=== PATIENT | female | born 1960 | race Caucasian/White ===

== ENCOUNTER → 2020-04-26 11:21 | Outpatient (CLI) | payer OTHER, SELFPAY ==
--- NOTE | ~2020-04-26 | MM_ITS ---
EXAMINATION: MM screening danna BI w smita HISTORY: Screening mammogram, family history of breast cancer in her mother and sister. TECHNIQUE: Craniocaudal and mediolateral oblique 3-D tomosynthesis images were obtained and synthetic 2-D images were generated. CAD analysis was submitted and interpreted. COMPARISON: 01/07/2019, 10/10/2017, 04/04/2016 BREAST PARENCHYMAL COMPOSITION: The breasts are almost entirely fatty. FINDINGS: There is no evidence of suspicious mass, calcification, or architectural distortion to sugg est malignancy in either breast. There has been no suspicious interval change. IMPRESSION: 1. No mammographic evidence of malignancy. 2. Recommend routine screening mammography in one year. BI-RADS Category 1: Negative Reviewed, dictated and finalized at location A. O SPECIALIST
== END ==
PROVIDERS: PCP Registered Nurse; Visit Provider Obstetrics & Gynecology
DX: Z12.31 Encounter for screening mammogram for malignant neoplasm of breast (principal)
CPT/HCPCS: 77063; 77067

== ENCOUNTER 2021-10-28 21:56 | Observation (INO) | payer OTHER, SELFPAY ==
--- NOTE | ~2021-10-28 | NM_ITS ---
EXAMINATION: NM han stress w perfusion DATE: 10/29/2021 10:29 CDT INDICATION: Chest pain TECHNIQUE: Rest images were obtained following intravenous administration of 10.9 mCi Tc99m tetrofosm in (Myoview). The patient was infused intravenously with Lexiscan (regadenoson). Then, 33.5 mCi Tc99m tetrofosmin (Myoview) was administered intravenously, and stress images were obtained. Data was herlinda nstructed into short axis and horizontal and vertical long axis SPECT images. Gated SPECT images were also obtained. COMPARISON: None. FINDINGS: There is no definite reversible or fixed perfusion abnormality to suggest ischemia or infar ction. There is no segmental wall motion abnormality. Left ventricular ejection fraction measures 7 3%. IMPRESSION: 1. No definite ischemia or infarct. 2. Normal left ventricular ejection fraction measuring 73%. Reviewed, dictated and finalized at location A.
--- NOTE | ~2021-10-28 | XR_ITS ---
EXAMINATION: XR chest 2V DATE: 10/28/2021 22:15 INDICATION: Chest pain. TECHNIQUE: Frontal and lateral views of the chest were obtained. COMPARISON: Chest 2 views 06/11/2019, chest CT 05/20/2017 FINDINGS: The chest demonstrates clear lungs without pneumonia, pleural effusion, or pneumothorax. Th e heart size is normal. IMPRESSION: 1. No acute cardiopulmonary disease. Reviewed, dictated and finalized at location A.
--- NOTE | 2021-10-28 22:00 | ECG_ITS ---
Measurements Intervals Garrett Rate: 82 P: 58 NE: 186 QRS: 47 QRSD: 88 T: 66 QT: 358 QTc: 421 Interpretive Statements SINUS RHYTHM BASELINE ARTIFACT- I, II, III, AVR, AVL, AVF NORMAL ECG Electronically Signed On 10-29-2021 5:43:14 CDT by Fabio Stover D.O.
[2021-10-28 22:03] VITALS: BP 152/84; PULSE 84; RESP 17; TEMP 36.8; O2SAT 99
--- NOTE | 2021-10-28 22:10 | ED.CHESTPAIN ---
HPI - Chest Pain General Chief Complaint: Chest Pain Stated Complaint: chest pain Time Seen by Provider: 10/28/21 22:04 Source: patient History of Present Illness HPI narrative: Patient presents with chest pain. Reports your symptoms started around 7:00 this evening describes a pressure sensation on the left side of her chest radiating to her left arm she took nitro which alleviated her symptoms she talk to her daughter who is a nurse and was encouraged to go to the ER for evaluation. For some association with shortness of breath. When she gets up and walks around physical activity does make her chest pain worse. She denies any lightheadedness or dizziness denies any nausea or diaphoresis. She does report a history of COPD and smoking denies diabetes hypertension elevated cholesterol. She denies any significant family history of cardiac disease denies recent hospitalizations or surgeries history of blood clots. Related Data Home Medications Medication Instructions Recorded Confirmed albuterol sulfate [Ventolin HFA] 2 puff INHALATION Q6H PRN 06/11/19 10/29/21 sertraline 100 mg PO DAILY 06/11/19 10/29/21 Allergies Allergy/AdvReac Type Severity Reaction Status Date / Time Sulfa (Sulfonamide Allergy Unknown Rash Verified 10/28/21 22:15 Antibiotics) Review of Systems Review of Systems: CONSTITUTIONAL: Denies fever, chills, or sweats. EYES: Denies visual changes, redness, or discharge. ENT: Denies rhinorrhea, congestion, sore throat, or otalgia. CARDIOVASCULAR: Denies palpitations, or edema. RESPIRATORY: Reports shortness of breath GASTROINTESTINAL: Denies abdominal pain, nausea, vomiting, or diarrhea. GENITOURINARY: Denies dysuria or hematuria. SKIN: Denies rash or itching. MUSCULOSKELETAL: Denies back pain, joint pain, or myalgia. NEUROLOGIC: Denies headache, numbness, dizziness, or weakness. PSYCHIATRIC: Denies anxiety or depression. All systems reviewed & are unremarkable except as noted in HPI and below [facility] Family History Family History (Updated 10/29/21 @ 01:50 by Susan Goetz RN) Grandparent Diabetes mellitus Carcinoma of colon Father Family history of cardiovascular disease Acute myocardial infarction, Onset Age: 73 Hypertension Mother Family history of dementia, Onset Age: 87 Sibling Lung cancer, Onset Age: 62 Social History Social History Smoking status: Current every day smoker Alcohol intake: never Exam Narrative: GENERAL: Well-appearing, well-nourished, and in no acute distress. HEAD: Normocephalic, atraumatic. EYES: PERRLA and EOMI. ENT: Nares clear, no rhinorrhea or epistaxis. Mucous membranes moist. NECK: Supple. No masses. No JVD CHEST: Clear to auscultation. No respiratory distress. No wheezes rales or rhonchi HEART: Regular rate and rhythm. No murmur heard. Normal peripheral pulses. ABDOMEN: Soft, nontender, nondistended, normal active bowel sounds. EXTREMITIES: Normal range of motion. No edema. SKIN: Warm, dry, no rash. NEURO: No focal deficits. Alert and oriented x3. PSYCH: Normal mood and affect. Course Reevaluation(s) Reevaluation #1: Patient resting comfortably continues to have pain. Given patient's smoking obesity and exertional component to pain patient benefit from expedited evaluation. Patient is admitted to Dr. Stover further evaluation. Date: 10/29/21 Time: 00:21 Vital Signs Vital signs: Vital Signs Temperature 36.8 C 10/28/21 22:03 Pulse Rate 84 10/28/21 22:03 Respiratory Rate 17 10/28/21 22:03 Blood Pressure 152/84 H 10/28/21 22:03 Pulse Oximetry 99 10/28/21 22:03 Temperature 36.3 C L 10/29/21 01:43 Pulse Rate 81 10/29/21 01:43 Respiratory Rate 18 10/29/21 01:43 Blood Pressure 128/73 10/29/21 01:43 Pulse Oximetry 97 10/29/21 01:43 MDM - Chest Pain MDM Narrative Medical decision making narrative: Patient
[2021-10-28] MEDS: ASPIRIN 81 MG CHEWABLE TABLET 324 MG PO (22:11)
--- NOTE | 2021-10-28 22:12 | PC.NURSE ---
Pt to XR via stretcher at this time.
[2021-10-28 22:16] LABS: Basophils Absolute Auto 0.1 K/mm3 (0.0-0.1); Basophils Percent Auto 0.9 % (0.2-1.2); Eosinophils Absolute Auto 0.1 K/mm3 (0-0.3); Eosinophils Percent Auto 1.7 % (0-4.4); Hematocrit 39.2 % (37.0-47.0); Hemoglobin 12.9 g/dL (12.0-15.0); Immature Granulocyte Absolute 0.01 K/mm3 (0.00-0.031); Immature Granulocyte Percent A 0.1 % (0-0.5); Lymphocytes Percent Auto 32.2 % (18.3-44.2); Mean Corpuscular HGB Conc 32.9 g/dl (32-36); Mean Corpuscular Hemoglobin 29.4 pg (26-34); Mean Corpuscular Volume 89.3 fl (80-100); Monocytes Absolute Auto 0.6 K/mm3 (0.1-0.6); Monocytes Percent Auto 7.3 % (2.6-8.5); Neutrophils Absolute Auto 4.7 K/mm3 (1.3-6.7); Neutrophils Percent Auto 57.8 % (45.5-73.1); Platelet Count Result 308 k/mm3 (150-375); Red Blood Count 4.39 M/mm3 (4.2-5.4); Red Cell Distribution Width 13.8 % (11.5-14.5); White Blood Count 8.1 K/mm3 (4.5-10.0)
[2021-10-28 22:26] LABS: INR 1.1; Partial Thromboplastin Time 31.1 SECONDS (22.3-36.8); Prothrombin Time 13.3 Seconds (11.1-14.7)
[2021-10-28 22:27] LABS: Alanine Aminotransferase 23 U/L (6-35); Albumin Level 4.3 g/dL (3.5-5.1); Alkaline Phosphatase 68 U/L (38-126); Anion Gap 9 mmol/L (8-16); Aspartate Amino Transferase 33 U/L (14-36); Bilirubin,Total 0.2 mg/dL (0.2-1.3); Blood Urea Nitrogen 22 mg/dL (7-17); Calcium 9.2 mg/dL (8.4-10.2); Carbon Dioxide 24 mmol/L (22-30); Chloride 104 mmol/L (98-107); Estimated CRCL calculation 70 ml/min; Estimated Glomerular Filt Rate > 60; Glucose 98 mg/dL (65-110); Lipase 152 U/L (23-300); Potassium 4.1 mmol/L (3.4-5.0); Sodium 137 mmol/L (137-145)
[2021-10-28 22:29] LABS: Atypical Lymphocytes Present; Platelet Estimate Adequate (Adequate)
[2021-10-28] MEDS: NITROGLYCERIN OINTMENT 1 INCH DOSE TRANSDERM (22:30)
[2021-10-28 22:32] LABS: D Dimer 0.45 ug/mL (<0.48)
[2021-10-28 22:33] VITALS: BP 137/81; PULSE 85; RESP 14; O2SAT 100
[2021-10-28 22:38] LABS: Troponin I < 0.012 ng/mL (0.000-0.034)
[2021-10-28 22:56] VITALS: BP 136/78; PULSE 90; RESP 18; O2SAT 99
[2021-10-28 23:06] VITALS: BP 127/70
[2021-10-28 23:57] VITALS: BP 130/74; PULSE 81; RESP 13; O2SAT 97
[2021-10-28] MEDS: MORPHINE SULFATE (*CRX) 4 MG/ML INJ IV PUSH (23:59)
[2021-10-29] VITALS (9 sets, daily range): BP systolic 101–144; BP diastolic 54–92; PULSE 77–90; RESP 13–18; TEMP 36.3–36.8; O2SAT 95–98; BMI 40.2
--- NOTE | 2021-10-29 | ECHO_ITS ---
Patient Info Name: Lizette Mena Age: 60 years : 1960 Gender: Female Ht: 66 in Wt: 249 lbs BSA: 2.35 m2 HR: 73 bpm BP: 101 / 54 mmHg Technical Quality: Poor Exam Date: 10/29/2021 11:14 AM Exam Location: [facility] Pulmonary Patient Status: Inpatient Admit Date: 10/29/2021 Staff Ordering Physician: Fabio Stover DO Taxicab Dispatcher: Jerel Asencio RDCS, RT Attending Provider: Fabio Stover DO Referring Physician: Ck HODGE; Exam Type: CA echo doppler color flow Study Info Indications R07.9 - Chest pain, unspecified Complete two-dimensional, color flow and Doppler transthoracic echocardiogram is performed. Strain analysis performed. Summary 1. Complete two-dimensional, color flow and Doppler transthoracic echocardiogram is performed. 2. Technically suboptimal study due to poor sonographic images. 3. Left ventricular chamber dimension is normal. 4. Left ventricular systolic function is normal, estimated at 60-65%. 5. The left ventricular diastolic function is grade I diastolic dysfunction. 6. Global longitudinal strain is normal at -17.3%. Left Ventricle Tissue doppler is not performed. Global longitudinal strain is normal at -17.3%. Technically suboptimal study due to poor sonographic images. Left ventricular chamber dimension is normal. Left ventricular systolic function is normal, estimated at 60-65%. The left ventricular diastolic function is grade I diastolic dysfunction. Right Ventricle Right ventricular systolic function is normal and with normal TAPSE 2.6 cm. Right ventricular chamber dimension is normal. Left Atria Left atrial chamber dimension is normal. Right Atria Right atrial chamber dimension is normal. Aortic Valve The aortic valve is not well visualized. Cannot determine number of aortic valve leaflets. There is no aortic valve stenosis based on normal valve area and gradients. There is no aortic valve regurgitation. Pulmonic Valve There is no pulmonic regurgitation. Mitral Valve There is no mitral valve stenosis. There is no mitral valve regurgitation. Tricuspid Valve There is no tricuspid valve regurgitation. Pericardium/Pleural There is no pericardial effusion. Inferior Vena Cava Normal inferior vena cava with >50% collapse upon inspiration consistent with normal right atrial pressure, 5 mmHg. Aorta The aortic root size at the sinus of Valsalva is normal. Left Ventricular Outflow Tract Name Value Normal LVOT 2D LVOT Diameter 2.0 cm LVOT Doppler LVOT Peak Gradient 3 mmHg LVOT Mean Gradient 2 mmHg LVOT VTI 19 cm LVOT VTI/AV VTI Ratio 0.7 LVOT Stroke Volume 60 ml LVOT CO 4.7 l/min LVOT CI 2.0 l/min/m2 Mitral Valve Name Value Normal MV Doppler --------
[2021-10-29] MEDS: ACETAMINOPHEN 500 MG TABLET 1000 MG PO (00:50)
[2021-10-29 01:39] LABS: Troponin I < 0.012 ng/mL (0.000-0.034)
--- NOTE | 2021-10-29 03:57 | PC.NURSE ---
This patient, Lizette Mena, was admitted to IMU Room 201-01. Patient/family oriented to hospital policies and general routines including ID bracelet, bed and alarms, visiting hours, pain management, procedures, bathroom and other care routines, personal items, smoking policy, room service/diet, and visiting hours. I
--- NOTE | 2021-10-29 05:48 | EST_ITS ---
Patient Info Name: Lizette Mena Age: 60 years : 1960 Gender: Female Ht: 66 in Wt: 249 lbs BSA: 2.35 m2 HR: 80 bpm BP: 112 / 76 mmHg Heart Rhythm: Sinus Rhythm Exam Date: 10/29/2021 9:24 AM Exam Location: [facility] Stress Patient Status: Outpatient Admit Date: 10/29/2021 Staff Ordering Physician: Fabio Stover DO Attending Provider: Fabio Stover DO Exercise Technologist: Kay Joy CT Exercise Physician: Fabio Stover DO Exam Type: CA stress han w NM Study Info Indications R07.9 - Chest pain, unspecified A regadenoson stress test was performed. Summary 1. 1. Negative lexiscan stress test for ischemic ST changes by ECG criteria. 2. 2. Stable hemodynamics throughout the test. 3. 3. Nuclear scan to follow and will be reported separately. Please correlate with it. 4. 4. Patient informed of the above results. Protocol: Lexiscan Stress ECG Details Stage: REST Duration (min): 0 min : 53 sec HR (bpm): 81 SBP (mmHg): 112 DBP (mmHg): 76 Stage: REST Duration (min): 6 min : 10 sec HR (bpm): 77 SBP (mmHg): 112 DBP (mmHg): 76 Stage: STAGE 1 Duration (min): 0 min : 59 sec HR (bpm): 93 SBP (mmHg): 113 DBP (mmHg): 79 Stage: RECOVERY Duration (min): 1 min : 0 sec HR (bpm): 97 SBP (mmHg): 113 DBP (mmHg): 79 Stage: RECOVERY Duration (min): 2 min : 0 sec HR (bpm): 91 SBP (mmHg): 113 DBP (mmHg): 79 Stage: RECOVERY Duration (min): 3 min : 0 sec HR (bpm): 94 SBP (mmHg): 88 DBP (mmHg): 70 Stage: RECOVERY Duration (min): 3 min : 30 sec HR (bpm): 94 SBP (mmHg): 103 DBP (mmHg): 69 Rest HR: 77 bpm Peak HR: 101 bpm Rest Sys BP: 112 mmHg Peak Sys BP: 113 mmHg Max Pred HR: 160 bpm % Max Pred HR: 63 % Target HR: 136 bpm Max RPP: 11,413 bpm*mmHg Termination Reason: Completed protocol Cardiac Symptoms: Shortness of breath, Headache, nausea Total Time: 1 min : 0 sec Rest Chambers BP: 76 mmHg Peak Chambers BP: 79 mmHg Total Dose: 0.4 mg Resting ECG Sinus rhythm. Stress ECG No ST changes. Arrhythmias None. Report Signatures
[2021-10-29 06:12] LABS: Troponin I < 0.012 ng/mL (0.000-0.034)
--- NOTE | 2021-10-29 07:31 | PM.IMHP ---
H&P: HPI History of Present Illness Date/Time: 10/29/21 07:31 Reason for admit: CP. 60 yr old woman presents to ER for chest pain. She has a history of smoking, COPD, covid infection in September 2021, anxiety, family history of CAD. Reports she was watching television at 7 pm last evening when she had sharp/burning chest pain and associated with left arm numbness. It was intermittent last night and currently at 4/10 in intensity. She had relatively severe covid infection with extreme fatigue and sob last month but recovered and did not need hospitalization. Since then she feels she is more limited at walking about 1 block due to JOY and fatigue. Denies orthopnea, PND, edema, dizziness, palpitations. EKG: Sinus rhythm. CXR is normal. CBC, CMP are normal. Troponin x 3 sets are 0. Chief Complaint: CP Review of Systems Review of Systems: All systems reviewed & are unremarkable except as noted in HPI and below Constitutional: Constitutional: Reports as per HPI, Denies chills and Denies fever(s) Cardiovascular: Cardiovascular: Reports as per HPI, Reports chest pain and Denies lightheadedness Respiratory: Respiratory: Reports as per HPI and Reports dyspnea on exertion Gastrointestinal: Gastrointestinal: Reports as per HPI and Denies abdominal pain Genitourinary: Genitourinary: Reports as per HPI and Denies dysuria Musculoskeletal: Musculoskeletal: Reports as per HPI Neurologic: Reports as per HPI, Denies dizziness and Denies syncope [facility] Family History Family History (Updated 10/29/21 @ 01:50 by Susan Goetz RN) Grandparent Diabetes mellitus Carcinoma of colon Father Family history of cardiovascular disease Acute myocardial infarction, Onset Age: 73 Hypertension Mother Family history of dementia, Onset Age: 87 Sibling Lung cancer, Onset Age: 62 Social History Social History Smoking packs per day: 0.75 Smoking cigarettes per day: 15.0 Years smoked: 45 Smoking pack-years: 33.75 Smoking status: Current every day smoker Tobacco type: cigarettes Alcohol intake: never Substance use: never Spiritual care concerns: No Meds Home Medications and Allergies Home Medications Medication Instructions Recorded Confirmed Type albuterol sulfate [Ventolin HFA] 2 puff INHALATION Q6H PRN 06/11/19 10/29/21 History sertraline 100 mg PO DAILY 06/11/19 10/29/21 History Allergies Allergy/AdvReac Type Severity Reaction Status Date / Time Sulfa (Sulfonamide Allergy Unknown Rash Verified 10/28/21 22:15 Antibiotics) Vital Signs Vital Signs - 24 hr 10/28/21 22:03 10/28/21 22:33 10/28/21 22:56 Temperature 98.2 F Pulse Rate 84 85 90 Respiratory Rate 17 14 18 Blood Pressure 152/84 H 137/81 136/78 Pulse Oximetry 99 100 99 10/28/21 23:06 10/28/21 23:57 10/29/21 00:44 Temperature Pulse Rate 81 80 Respiratory Rate 13 13 Blood Pressure 127/70 130/74 144/92 H Pulse Oximetry 97 98 10/29/21 01:24 10/29/21 01:43 10/29/21 02:00 Temperature 97.3 F L Pulse Rate 77 81 84 Respiratory Rate 18 18 Blood Pressure 107/75 128/73 Pulse Oximetry 96 97 10/29/21 04:00 10/29/21 05:48 Temperature 97.6 F Pulse Rate 81 90 Respiratory Rate 14 Blood Pressure 101/54 L Pulse Oximetry 96 Exam Const: General: cooperative, healthy appearing and comfortable Nutritional Appearance: obese Resp: Auscultation: clear to auscultation bilaterally, no crackles, no rales, no rhonchi and no wheezes Cardio: Jugular venous distension: no JVD Rate: regular rate Rhythm: regular rhythm Heart sounds: no murmurs Other: Reproducible chest pain with palpation of chest just left of midline GI: GI Palp: No abdominal tenderness and Yes Soft to palpation Neuro: General: oriented to person, oriented to place and oriented to time Extrem: Right lower extremity: no edema Left lower extremity: no edema
[2021-10-29 08:05] LABS: Cholesterol 143 mg/dL (0-200); HDL Direct 45 mg/dL; Triglycerides 107 mg/dL (<150)
[2021-10-29 08:16] LABS: LDL Cholesterol Direct 60 mg/dL
[2021-10-29] MEDS: ASPIRIN 81 MG CHEWABLE TABLET PO (08:16)
[2021-10-29] MEDS: SERTRALINE HCL 50 MG TABLET 100 MG PO (08:16)
--- NOTE | 2021-10-29 08:37 | PC.NURSE ---
Pt to Lexiscan via wheelchair
--- NOTE | 2021-10-29 10:14 | PC.NURSE ---
Pt returned from stress test via wheelchair
--- NOTE | 2021-10-29 12:55 | PM.DS ---
DS: Admitting Diagnosis Discharge Date CP Admitting Diagnosis CP DS: Summary Hospital Course Hospital Course: Please refer to H and P today for details of admission. Patient came in with chest pains. She was r/o for TX by serial troponin and EKG. Echo was done that was unremarkable. Nuclear stress test was normal. Patient has non-cardiac chest pain, likely musculoskeletal. Continue same home medication of Sertraline 100 mg daily and Albuterol MDI prn. May take Ibuprofen 400-600 mg BID for chest pains. Status: Stable. Disposition: Home. Diet: Heart healthy. Activity: As tolerated. F/U with me in 2 weeks. Time Spent with Patient Time attestation: Total time spent providing and/or coordinating discharge services: DS: Data Data Completed and Pending Labs on day of discharge: Labs from last 24 hours 10/29/21 10/29/21 10/29/21 04:55 04:53 04:53 WBC RBC Hgb Hct MCV MCH MCHC RDW Plt Count MPV Immature Gran % (Auto) Neut % (Auto) Lymph % (Auto) Kinney % (Auto) Eos % (Auto) Baso % (Auto) Lymph # (Auto) Kinney # (Auto) Eos # (Auto) Baso # (Auto) Abs Immat Gran (auto) Absolute Neuts (auto) Absolute Nucleated RBC Nucleated RBC % Atypical Lymphocytes Platelet Estimate PT INR APTT D-Dimer Sodium Potassium Chloride Carbon Dioxide Anion Gap BUN Creatinine Estim Creat Clear Calc Estimated GFR Glucose Calcium Total Bilirubin AST ALT Alkaline Phosphatase Troponin I < 0.012 Total Protein Albumin Triglycerides 107 Cholesterol 143 LDL Cholesterol Direct 60 HDL Direct 45 Lipase TSH (Reflex) 3.900 10/29/21 10/28/21 10/28/21 01:13 22:09 22:09 WBC RBC Hgb Hct MCV MCH MCHC RDW Plt Count MPV Immature Gran % (Auto) Neut % (Auto) Lymph % (Auto) Kinney % (Auto) Eos % (Auto) Baso % (Auto) Lymph # (Auto) Kinney # (Auto) Eos # (Auto) Baso # (Auto) Abs Immat Gran (auto) Absolute Neuts (auto) Absolute Nucleated RBC Nucleated RBC % Atypical Lymphocytes Platelet Estimate PT 13.3 INR 1.1 APTT 31.1 D-Dimer 0.45 Sodium 137 Potassium 4.1 Chloride 104 Carbon Dioxide 24 Anion Gap 9 BUN 22 H Creatinine 0.90 Estim Creat Clear Calc 70 Estimated GFR > 60 Glucose 98 Calcium 9.2 Total Bilirubin 0.2 AST 33 ALT 23 Alkaline Phosphatase 68 Troponin I < 0.012 < 0.012 Total Protein 8.0 Albumin 4.3 Triglycerides Cholesterol LDL Cholesterol Direct HDL Direct Lipase 152 TSH (Reflex) 10/28/21 22:09 WBC 8.1 RBC 4.39 Hgb 12.9 Hct 39.2 MCV 89.3 MCH 29.4 MCHC 32.9 RDW 13.8 Plt Count 308 MPV 9.0 Immature Gran % (Auto) 0.1 Neut % (Auto) 57.8 Lymph % (Auto) 32.2 Kinney % (Auto) 7.3 Eos % (Auto) 1.7 Baso % (Auto) 0.9 Lymph # (Auto) 2.60 Kinney # (Auto) 0.6 Eos # (Auto) 0.1 Baso # (Auto) 0.1 Abs Immat Gran (auto) 0.01 Absolute Neuts (auto) 4.7 Absolute Nucleated RBC 0.0 Nucleated RBC % 0.0 Atypical Lymphocytes Present Platelet Estimate Adequate PT INR APTT D-Dimer Sodium Potassium Chloride Carbon Dioxide Anion Gap BUN Creatinine Estim Creat Clear Calc Estimated GFR Glucose Calcium Total Bilirubin AST ALT Alkaline Phosphatase Troponin I Total Protein Albumin Triglycerides Cholesterol LDL Cholesterol Direct HDL Direct Lipase TSH (Reflex) Discharge Plan Discharge Attending physician on discharge: Fabio Stover Discharging Clinician: Fabio Stover Patient Disposition: Home, Self-Care Activity: as tolerated Diet: heart healthy Patient Instructions: Antibiotic Form, Chest Pain (DC), How to Stop Smoking (DC), Pain Management in Older Adults (DC), Long COVID (DC) Stand Alone Forms: General Di
== END 2021-10-29 14:05 | disposition home or self-care (01) ==
LOC: ANHED 10-29 00:22 → ANHIMU 10-29 01:09
PROVIDERS: Admitting Provider Internal Medicine Cardiovascular Disease; Emergency Provider Emergency Medicine; PCP Registered Nurse; Visit Provider Internal Medicine Cardiovascular Disease
DX: R07.89 Other chest pain (principal); J44.9 Chronic obstructive pulmonary disease, unspecified; F17.210 Nicotine dependence, cigarettes, uncomplicated; F41.9 Anxiety disorder, unspecified; R06.00 Dyspnea, unspecified; Z86.16 Personal history of COVID-19
CPT/HCPCS: 36415; 71046; 78452; 80053; 80061; 83690; 84443; 84484; 85025; 85380; 85610; 85730; 93005; 93017; 93306; 96374; 99285; A9270; A9502; G0378; J2270; J2785

== ENCOUNTER → 2022-10-01 12:17 | Outpatient (CLI) | payer OTHER, SELFPAY ==
--- NOTE | ~2022-10-01 | MM_ITS ---
EXAMINATION: MM screening danna BI w smita HISTORY: Screening mammogram TECHNIQUE: Craniocaudal and mediolateral oblique 3-D tomosynthesis images were obtained and synthetic 2-D images were generated. CAD analysis was submitted and interpreted. COMPARISON: 04/26/2020, 01/07/2019, 10/10/2017 bilateral screening mammogram examinations BREAST PARENCHYMAL COMPOSITION: There are scattered areas of fibroglandular density. FINDINGS: There is no evidence of suspicious mass, calcification, or architectural distortion to sugg est malignancy in either breast. There has been no suspicious interval change. IMPRESSION: 1. No mammographic evidence of malignancy. 2. Recommend routine screening mammography in one year. BI-RADS Category 1: Negative Reviewed, dictated and finalized at location A.
== END ==
PROVIDERS: PCP Obstetrics & Gynecology; Visit Provider Obstetrics & Gynecology
DX: Z12.31 Encounter for screening mammogram for malignant neoplasm of breast (principal)
CPT/HCPCS: 77063; 77067

== ENCOUNTER 2022-12-04 08:00 | Outpatient (CLI) | payer OTHER, SELFPAY ==
--- NOTE | 2022-12-04 11:28 | WPDPFTINT ---
PFT Procedure Performed PFT Procedure Performed Spirometry with Pre/Post Bronchodilator Plethysmography (Lung Vol) Diffusing Cap (DLCO) Flow Vol Loop PFT Interpretation This is a pulmonary function test with pre and post-bronchodilator spirometry, plethysmography and diffusing capacity. The test was performed and results interpreted in accordance with the 2019 and 2005 ATS/ERS Task Force guidelines respectively using the Global Lung Function Initiative-2012 reference equations. Patient demonstrated good effort and cooperation. Reproducibility criteria were met. The quality of the pre bronchodilator spirometry maneuver was Grade B and post bronchodilator spirometry maneuver was Grade A. Findings: Spirometry: The contour the inspiratory and expiratory flow tracing are normal. The pre bronchodilator FVC is 2.72 L, 81% predicted. The pre bronchodilator FEV1 is 2.05 L, 78% predicted. The pre bronchodilator FEV1: FVC ratio 75%. The post bronchodilator FVC is 2.74 L, representing a 1% increase. The post bronchodilator FEV1 is 2.13 L, representing a 4% increase. The post bronchodilator FEV1: FVC ratio 78%. Plethysmography: The total lung capacity is 5.63 L, 105% predicted. The functional residual capacity is 2.92 L, 95% predicted. The residual volume is 2.80 L, 131% predicted. Diffusing capacity: The diffusing capacity unadjusted for hemoglobin and carboxyhemoglobin is 19.4, 87% predicted. The diffusing capacity adjusted for alveolar volume is 4.61, 107% predicted. Impression: The spirometry is normal without evidence of an obstructive abnormality. There is no significant improvement after inhaling a single dose of albuterol. The lung volumes are normal. The diffusing capacity is normal. There are no prior studies for comparison.
== END 2022-12-04 08:01 | disposition home or self-care (01) ==
PROVIDERS: PCP Registered Nurse; Visit Provider Registered Nurse
DX: R06.09 Other forms of dyspnea (principal); J43.8 Other emphysema
CPT/HCPCS: 94060; 94726; 94729

== ENCOUNTER → 2023-04-01 13:31 | Outpatient (CLI) | payer OTHER, SELFPAY ==
--- NOTE | ~2023-04-01 | US_ITS ---
EXAMINATION:US venous doppler LE RT INDICATION:Right calf pain and tightness TECHNIQUE: Multiple grayscale, color flow and Doppler images of the right lower extremity deep venous systems were obtained and reviewed. COMPARISON:No prior studies for comparison. FINDINGS: The common femoral, superficial femoral and popliteal veins demonstrate normal respiratory variation, augmentation and compressibility. Color flow is also seen within the peroneal, greater sa phenous and profunda veins. There is deep venous thrombosis in one of 2 posterior tibial veins. IMPRESSION: 1: Deep venous thrombosis of the right posterior tibial vein. Patient will be held in radiology until patient's physician is contacted. Reviewed, dictated and finalized at location L.
== END ==
PROVIDERS: PCP Nurse Practitioner; Visit Provider Nurse Practitioner
DX: I82.441 Acute embolism and thrombosis of right tibial vein (principal)
CPT/HCPCS: 93971

== ENCOUNTER 2023-05-19 07:37 | Outpatient (CLI) | payer OTHER, SELFPAY ==
--- NOTE | 2023-05-19 | ECHO_ITS ---
Patient Info Name: Lizette Mena Age: 62 years : 1960 Gender: Female Ht: 66 in Wt: 250 lbs BSA: 2.35 m2 HR: 95 bpm BP: 131 / 83 mmHg Technical Quality: Fair Exam Date: 05/19/2023 8:05 AM Exam Location: Echo Lab Patient Status: Outpatient Admit Date: 05/19/2023 Staff Ordering Physician: Nandini, Michelle HIRSCH Coffee Maker Servicer: Katherin Beard RDCS Attending Provider: Nandini, Michelle HIRSCH Exam Type: CA echo doppler color flow Study Info Indications R93.89 - ABNORMAL FINDING ON CT SCAN Complete two-dimensional, color flow and Doppler transthoracic echocardiogram is performed. Summary 1. Complete two-dimensional, color flow and Doppler transthoracic echocardiogram is performed. 2. Left ventricular chamber dimension is normal. 3. Left ventricular systolic function is normal, estimated at 60-65%. 4. The left ventricular diastolic function is grade I diastolic dysfunction. 5. E/e' 12 is mildly elevated. 6. Global longitudinal strain is normal at -19.1%. 7. No pulmonary hypertension, estimated pulmonary arterial systolic pressure is 35 mmHg. Left Ventricle E/e' 12 is mildly elevated. Global longitudinal strain is normal at -19.1%. Left ventricular chamber dimension is normal. Left ventricular systolic function is normal, estimated at 60-65%. The left ventricular diastolic function is grade I diastolic dysfunction. Right Ventricle Right ventricular systolic function is normal and with normal TAPSE 2.4 cm. Right ventricular chamber dimension is normal. Left Atria Left atrial chamber dimension is normal. Right Atria Right atrial chamber dimension is normal. Aortic Valve The aortic valve is not well visualized. Cannot determine number of aortic valve leaflets. There is no aortic valve stenosis. There is no aortic valve regurgitation. Pulmonic Valve There is no pulmonic regurgitation. Mitral Valve There is no mitral valve stenosis. There is no mitral valve regurgitation. Tricuspid Valve There is no tricuspid valve regurgitation. No pulmonary hypertension, estimated pulmonary arterial systolic pressure is 35 mmHg. Pericardium/Pleural There is no pericardial effusion. Inferior Vena Cava Normal inferior vena cava with >50% collapse upon inspiration consistent with normal right atrial pressure, 5 mmHg. Aorta The aortic root size at the sinus of Valsalva is normal. Left Ventricular Outflow Tract Name Value Normal LVOT 2D LVOT Diameter 1.9 cm LVOT Doppler LVOT Peak Gradient 6 mmHg LVOT Mean Gradient 3 mmHg LVOT VTI 23 cm LVOT VTI/AV VTI Ratio 0.9 LVOT Stroke Volume 68 ml LVOT CO 5.4 l/min LVOT CI 2.3 l/min/m2 Pulmonic Valve Name Value Normal RVOT Doppler RVOT Peak Gradient 3 mmHg PV Doppler ----
== END 2023-05-19 07:38 | disposition home or self-care (01) ==
PROVIDERS: PCP Registered Nurse; Visit Provider Registered Nurse
DX: R93.89 Abnormal findings on diagnostic imaging of other specified body structures (principal)
CPT/HCPCS: 93306

== ENCOUNTER 2023-10-18 12:11 | Emergency (ER) | payer OTHER, SELFPAY ==
--- NOTE | ~2023-10-18 | XR_ITS ---
XR chest 2V DATE: 10/18/2023 12:42 INDICATION: Cough and shortness of breath for 3 weeks TECHNIQUE: 2 views COMPARISON: 10/28/2021 PA and lateral chest FINDINGS: Normal heart size. Aortic arch calcification. No hilar or mediastinal enlargement. No pulmonary infiltrate or consolidation, pleural effusion or pulmonary vascular congestion or pneumo thorax is evident. Osteopenia. IMPRESSION: No active cardiopulmonary disease Reviewed, dictated and finalized at location A.
[2023-10-18 12:17] VITALS: BP 116/73; PULSE 97; RESP 16; TEMP 36.8; O2SAT 97
--- NOTE | 2023-10-18 12:24 | ED.URI ---
HPI - URI/Sore Throat General Chief Complaint: Upper Respiratory Infection Stated Complaint: COUGH Source: patient Mode of arrival: ambulatory Limitations: no limitations History of Present Illness HPI Narrative: 62 y/o female with hx COPD presented for c/o frequent cough worsening since onset 3 weeks ago. Endorses sob with exertion, and cough is causing her to lose sleep and feel like she cannot catch her breath. Pt was seen at over 1 week ago, given Rx steroids which she has completed, and started Augmentin 6 days ago. States she was in [place] last week, and walked more than normal without much difficulty. Hx DVT RLE, has been taking Eliquis. Denies cp, wheezing, n/v/d/f/c. Taking Nyquil, delsym and tessalon perles with out improvement. Pt is daily smoker. Related Data Home Medications Medication Instructions Recorded Confirmed sertraline 100 mg tablet 100 mg PO DAILY 06/11/19 10/18/23 apixaban 5 mg tablet (Eliquis) 5 mg PO BID 05/12/23 10/18/23 albuterol sulfate 90 mcg/actuation 2 inh inhalation DIRECTED 10/18/23 10/18/23 aerosol inhaler amoxicillin 875 mg-potassium 1 tablet PO BID 10/18/23 10/18/23 clavulanate 125 mg tablet Allergies Allergy/AdvReac Type Severity Reaction Status Date / Time Sulfa (Sulfonamide Allergy Mild Rash Verified 10/18/23 12:16 Antibiotics) Review of Systems Review of Systems: CONSTITUTIONAL: Denies body aches, fever, chills, or sweats. EYES: Denies visual changes, redness, or discharge. ENT: Denies rhinorrhea, congestion, sore throat, or otalgia. CARDIOVASCULAR: Denies chest pain, palpitations, or edema. RESPIRATORY: Reports cough, sob, denies wheezing. GASTROINTESTINAL: Denies abdominal pain, nausea, vomiting, or diarrhea. SKIN: Denies rash, itching, or wounds. MUSCULOSKELETAL: Denies back pain, joint pain, or myalgia. NEUROLOGIC: Denies headache All systems reviewed & are unremarkable except as noted in HPI and below PMFSH Past Medical History Medical History Abnormal Pap smear of cervix Anxiety and depression Arthritis Fracture of thumb (L) thumb H/O blood clots (03/2023) History of endometrial biopsy 10/25/97 benign 08/22/98 Screening mammogram, encounter for Surgical History Surgical History H/O LEEP 01/02/98 benign History of carpal tunnel surgery (~2004) History of colposcopy with cervical biopsy 1997 TED II History of hysterectomy (~1998) fibroids/adenomyosis Family History Family History Grandparent Diabetes mellitus Carcinoma of colon paternal grandfather Father Family history of cardiovascular disease Acute myocardial infarction, Onset Age: 73 Hypertension Mother Family history of dementia, Onset Age: 87 Sibling Malignant neoplasm of lung, Onset Age: 62 sister Esophageal cancer, Onset Age: 74 Brother Social History Social History Smoking packs per day: 0.50 Smoking cigarettes per day: 10.0 Years smoked: 45 Smoking pack-years: 22.50 Smoking status: Current every day smoker Tobacco type: cigarettes Second hand tobacco smoke exposure: Yes Alcohol intake: never Substance use: never Substance use type: does not use Lack of Transportation: No Lack of Food: Never True Current Housing: I Have Housing Concerned About Future Housing: No Difficulty Paying Gas/Electric Bills: No Difficulty Paying for Meds: No Currently Unemployed: No Education: Trade/Vocational Certificate Difficulty w/ Childcare or Family Care: No Living arrangements: other Additional living arrangements comments: Occupation/Education: retired Gender identity (if verbalized by the patient): Female Sexual Orientation (if Verbali
== END 2023-10-18 13:23 | disposition home or self-care (01) ==
PROVIDERS: Emergency Provider Nurse Practitioner Family; PCP Registered Nurse
DX: J40 Bronchitis, not specified as acute or chronic (principal); Z86.718 Personal history of other venous thrombosis and embolism; Z79.01 Long term (current) use of anticoagulants; F41.8 Other specified anxiety disorders; F17.210 Nicotine dependence, cigarettes, uncomplicated
CPT/HCPCS: 71046; 99213; G0463

== ENCOUNTER 2023-12-03 10:25 | Outpatient (CLI) | payer OTHER, SELFPAY ==
--- NOTE | ~2023-12-03 | US_ITS ---
EXAMINATION: US venous doppler LE RT DATE: 12/03/2023 11:13 INDICATION: Right lower limb swelling. Varicose veins. TECHNIQUE: Grayscale ultrasound images without and with compression and Doppler ultrasound images of the right lower extremity veins were obtained. COMPARISON: None. FINDINGS: The visualized portions of right common femoral vein, profunda (deep) femoral vein, femoral vein, pop liteal vein, posterior tibial veins, peroneal veins, gastrocnemius vein and greater saphenous vein ou tflow are patent. IMPRESSION: 1. No deep venous thrombosis in the right lower limb. Reviewed, dictated and finalized at location B.
== END 2023-12-03 10:26 | disposition home or self-care (01) ==
PROVIDERS: PCP Registered Nurse; Visit Provider Registered Nurse
DX: R60.0 Localized edema (principal)
CPT/HCPCS: 93971

== ENCOUNTER 2024-02-05 15:19 | Outpatient (CLI) | payer OTHER, SELFPAY ==
--- NOTE | ~2024-02-05 | MM_ITS ---
EXAMINATION: MM screening [facility] BI [facility] HISTORY: Screening TECHNIQUE: Craniocaudal and mediolateral oblique 3-D tomosynthesis images were obtained and synthetic 2-D images were generated. CAD analysis was submitted and interpreted. COMPARISON: Comparison to multiple prior studies sequentially, with oldest reviewed study dated 11/2014. BREAST PARENCHYMAL COMPOSITION: Not Dense. The breasts are almost entirely fatty. FINDINGS: There is no evidence of suspicious mass, calcification, or architectural distortion to sugg est malignancy in either breast. There has been no suspicious interval change. IMPRESSION: 1. No mammographic evidence of malignancy. 2. Recommend routine screening mammography in one year. BI-RADS Category 1: Negative Reviewed, dictated and finalized at location B.
== END 2024-02-05 15:20 ==
LOC: MICIMG 15:20
PROVIDERS: PCP Obstetrics & Gynecology; Visit Provider Obstetrics & Gynecology
DX: Z12.31 Encounter for screening mammogram for malignant neoplasm of breast (principal)
CPT/HCPCS: 77063; 77067